=== PATIENT | female | born 1950 | race Caucasian/White ===

== ENCOUNTER 2017-06-09 06:09 | Day surgery (SDC) | payer MEDICARE ==
[2017-06-09] VITALS (8 sets, daily range): BP systolic 107–182; BP diastolic 64–91; PULSE 66–85; RESP 16–20; TEMP 97.7–98.3; O2SAT 97
[~2017-06-09] VITALS: Ht 160 cm; Wt 66.0 kg
[~2017-06-09 06:09] MED LIST: AMLO5TAB2 PO; ATOR10TA15 PO; CALC1TAB87 PO; MONT10TA4 PO; OMEGCAP PO; SYMB160A INH; VENTAER INH; VITATAB43 PO; [UNRECOGNIZED DRUG - OTHER] PO
[2017-06-09] MEDS ORDERED: SODIUM CHLOR 0.9% 1000 ML IV SCH (07:00)
[2017-06-09] MEDS ORDERED: LIDOCAINE HCL 1% 20 ML VIAL ONE (07:47)
[2017-06-09] MEDS ORDERED: MIDAZOLAM HCL 2 MG/2 ML VIAL ONE ×2 (08:29)
[2017-06-09 11:03] LABS: AUTOMATED NEUTROPHIL # 4.8 TH/MM3 (1.8-7.7); BASOPHIL # 0.1 TH/MM3 (0-0.2); BASOPHIL % 1.4 % (0.0-2.0); EOSINOPHIL # 0.2 TH/MM3 (0-0.4); EOSINOPHIL % 2.3 % (0.0-4.0); HEMATOCRIT 38.3 % (35.0-46.0); HEMOGLOBIN 13.1 GM/DL (11.6-15.3); LYMPH % 27.5 % (9.0-44.0); LYMPHOCYTE # 2.1 TH/MM3 (1.0-4.8); MEAN CORPUSCULAR HEMOGLOBIN 31.5 PG (27.0-34.0); MEAN CORPUSCULAR HGB CONC 34.3 % (32.0-36.0); MEAN PLATELET VOLUME 8.1 FL (7.0-11.0); MONOCYTE # 0.5 TH/MM3 (0-0.9); NEUT % 62.8 % (16.0-70.0); PLATELET COUNT 204 TH/MM3 (150-450); RED BLOOD COUNT 4.16 MIL/MM3 (4.00-5.30); RED CELL DISTRIBUTION WIDTH 12.3 % (11.6-17.2); WHITE BLOOD COUNT 7.6 TH/MM3 (4.0-11.0)
[2017-06-09] MEDS ORDERED: ACETAMINOPHEN 325 MG TAB PO ONE (13:30)
--- NOTE | 2017-06-09 16:18 | RADRPT ---
EXAM DATE/TIME: 06/09/2017 08:45 [place] COMPARISON: No previous studies available for comparison. INDICATIONS : Right renal cyst aspiration. SEDATION TIME: 15 minutes MEDICATION(S): 1.) 2 mg midazolam (Versed) IV 2.) 100 mcg fentanyl (Sublimaze) IV DEVICE(S): 1.) 20 gauge [place] FLUID: Total volume of 80 cc of clear, yellow fluid was removed. Fluid was sent for laboratory ordered studies. MEDICAL HISTORY : Carcinoma, breast. Hypertension. SURGICAL HISTORY : Appendectomy. Mastectomy, bilateral. ENCOUNTER: Initial ACUITY: 1 day PAIN SCORE: 0/10 LOCATION: Right renal PROCEDURE: 1.) Conscious sedation with continuous EKG and oximetry monitoring. 2.) EKG and oximetry remained stable throughout the procedure. PROCEDURE : CT guided right renal cyst aspiration. The risks, benefits and alternatives to the procedure were explained and verbal and written consent w as obtained. Using automated exposure control and adjustment of the mA and/or kV according to patien t size, radiation dose was kept as low as reasonably achievable to obtain optimal diagnostic quality images. The site was prepped in sterile fashion. Full sterile technique was used, including cap, ma sk, sterile gloves and gown and a large sterile sheet. Hand hygiene and 2% chlorhexidine and/or beta dine/alcohol prep was utilized per protocol for cutaneous antisepsis. The skin and subcutaneous tiss ues were infiltrated with local anesthetic solution. DICOM format image data is available electronic ally for review and comparison. An 18 gauge Rios needle was passed into the right renal cyst with CT guidance. 80 cc of clear yell ow fluid was aspirated with almost complete collapse of the renal cyst noted. The fluid was sent for cytology. The patient tolerated the procedure well without complications. CONCLUSION: Uncomplicated CT-guided right renal cyst aspiration as above. Aris Le MD on June 09, 2017 at 16:15 Board Certified Radiologist. This report was verified electronically.
== END 2017-06-09 14:45 | disposition home or self-care (01) ==
LOC: HRAD 06:09 → HRIP 06:16 → HRAD 14:45
PROVIDERS: ATTEND Urology
DX: N28.1 Cyst of kidney, acquired (principal)
CPT/HCPCS: 50390; 77012; 85025; 88173; J2250; J3010; J7030